=== PATIENT | male | born 1980 | race Hispanic/Latino ===

== ENCOUNTER 2021-12-27 19:31 | Emergency (ER) | payer OTHER ==
[~2021-12-27] VITALS: Ht 177.8 cm; Wt 69.9 kg
[2021-12-27] MEDS ORDERED: TETANUS/DIPHTHERIA TOX ADULT 0.5 ML SYR IM ONE (20:00)
[2021-12-27] MEDS ORDERED: TETRACAINE HCL 0.5% OPTH SOLN 4 ML BTL OP ONE (20:00)
[2021-12-27] MEDS ORDERED: FLUORESCEIN SOD(OPTH) 1 MG STRP OP ONE (20:00)
[2021-12-27 20:49] VITALS: BP 130/90
[2021-12-27] MEDS ORDERED: MOXIFLOXACIN HCL(OPTH) 3 ML BTL OP SCH (21:00)
== END 2021-12-27 20:58 | disposition home or self-care (01) ==
LOC: ER 20:05
DX: S05.02XA Injury of conjunctiva and corneal abrasion without foreign body, left eye, initial encounter (principal); X58.XXXA Exposure to other specified factors, initial encounter; Y92.89 Other specified places as the place of occurrence of the external cause
CPT/HCPCS: 90471; 90714; 99283